=== PATIENT | female | born 1970 | race Caucasian/White ===

== ENCOUNTER 2020-09-27 09:20 | Day surgery (SDC) | payer BC ==
[2020-09-27 07:34] VITALS: BMI 38.5
[2020-09-27] MEDS ORDERED: LIDOCAINE HCL/PF 2% SDV 5ML VIAL ONE (10:43)
[2020-09-27] MEDS ORDERED: PROPOFOL 20 ML ONE ×6 (10:43→10:48)
[2020-09-27 11:49] VITALS: BP 131/61; PULSE 66; TEMP 97
== END 2020-09-27 12:00 | disposition home or self-care (01) ==
LOC: FASU 09:20
PROVIDERS: ATTEND Internal Medicine Gastroenterology
PROC: 0DBH8ZX Excision of Cecum, Via Natural or Artificial Opening Endoscopic, Diagnostic (ICD-10-PCS; principal; 2020-09-27 10:52)
DX: Z12.11 Encounter for screening for malignant neoplasm of colon (principal); K64.0 First degree hemorrhoids; K57.30 Diverticulosis of large intestine without perforation or abscess without bleeding; K63.89 Other specified diseases of intestine
CPT/HCPCS: 88305-TC

== ENCOUNTER 2020-10-06 08:32 | Day surgery (SDC) | payer BC ==
[2020-10-04 15:50] VITALS: BMI 39.6
[2020-10-06] MEDS ORDERED: BUPIVACAINE HCL/PF 2.5 MG/ML - 30 ML VIAL IJ ONE (11:49)
[2020-10-06] MEDS ORDERED: SUCCINYLCHOLINE CHLORIDE 200 MG/10 ML SYRINGE ONE (12:03)
[2020-10-06] MEDS ORDERED: PROPOFOL 20 ML ONE ×2 (12:03)
[2020-10-06] MEDS ORDERED: MIDAZOLAM HCL 2 MG/2 ML SINGLE DOSE VIAL ONE (12:03)
[2020-10-06] MEDS ORDERED: ceFAZolin SODIUM 1 GM VIAL ONE (12:26)
[2020-10-06] MEDS ORDERED: ONDANSETRON 4 MG/2 ML VIAL ONE (12:26)
[2020-10-06] MEDS ORDERED: LIDOCAINE HCL 2% JELLY (5 ML/TUBE) ONE (12:26)
[2020-10-06] MEDS ORDERED: DEXAMETHASONE SOD PHOSPHATE 4 MG/1 ML VIAL ONE (12:26)
[2020-10-06] MEDS ORDERED: LIDOCAINE HCL/PF 2% SDV 5ML VIAL ONE (12:26)
[2020-10-06] MEDS ORDERED: oxyCODONE HCL 5 MG TABLET PO PRN ×2 (13:17)
[2020-10-06] MEDS ORDERED: PROMETHAZINE HCL 25 MG/1 ML VIAL IVPUSH PRN (13:17)
[2020-10-06] MEDS ORDERED: ONDANSETRON 4 MG/2 ML VIAL IVPUSH PRN (13:17)
[2020-10-06] MEDS ORDERED: oxyCODONE HCL 5 MG TABLET ONE (14:16)
[2020-10-06 14:38] VITALS: TEMP 97.8
[2020-10-06 15:11] VITALS: BP 111/75; PULSE 79
== END 2020-10-06 15:14 | disposition home or self-care (01) ==
LOC: FASU 08:32
PROVIDERS: ATTEND Orthopaedic Surgery
PROC: 0SBD4ZZ Excision of Left Knee Joint, Percutaneous Endoscopic Approach (ICD-10-PCS; 2020-10-06)
PROC: 0SBD4ZZ Excision of Left Knee Joint, Percutaneous Endoscopic Approach (ICD-10-PCS; 2020-10-06)
PROC: 0SBD4ZZ Excision of Left Knee Joint, Percutaneous Endoscopic Approach (ICD-10-PCS; principal; 2020-10-06 12:45)
DX: S83.242A Other tear of medial meniscus, current injury, left knee, initial encounter (principal); S83.282A Other tear of lateral meniscus, current injury, left knee, initial encounter; S83.8X2A Sprain of other specified parts of left knee, initial encounter; M65.862 Other synovitis and tenosynovitis, left lower leg; X58.XXXA Exposure to other specified factors, initial encounter; Y93.9 Activity, unspecified; Y92.9 Unspecified place or not applicable
CPT/HCPCS: 84703; 88304-TC; 94760